=== PATIENT | female | born 1965 | race Caucasian/White ===

== ENCOUNTER 2018-04-04 18:54 | Emergency (ER) | payer BC ==
[~2018-04-04] VITALS: Ht 165.1 cm; Wt 82.6 kg
[2018-04-04 19:00] VITALS: BP 185/109
--- NOTE | 2018-04-04 19:00 | NUR ---
PATIENT AMBULATED TO ER BED 6.
--- NOTE | 2018-04-04 19:05 | NUR ---
PATIENT PRESENTS TO ED WITH C/O DIZZINESS STARTED TODAY. REPORTS TINGLING ON L SIDE OF BODY TODAY, BODY ACHES, BACKACHES. PT DENIES N/V/D; SKIN IS PINK/WARM/DRY; AAOX4 WITH EVEN AND STEADY GAIT; LUNGS CLEAR BL; HR EVEN AND REGULAR; PT DENIES ANY FEVER, CP, SOB, OR COUGH AT THIS TIME; PATIENT STATES PAIN OF 8/10 AT THIS TIME; VSS; PATIENT POSITIONED FOR COMFORT; HOB ELEVATED; BEDRAILS UP X2; BED DOWN. ER MD MADE AWARE OF PT STATUS.
[2018-04-04 19:35] LABS: BASOPHILS # (AUTO) 0.1 K/uL (0.00-0.22); BASOPHILS % (AUTO) 0.7 % (0.0-2.0); EOSINOPHILS # (AUTO) 0.2 K/uL (0-0.4); EOSINOPHILS % (AUTO) 2.1 % (0.0-4.0); HEMATOCRIT 46.9 % (36-48); HEMOGLOBIN 15.3 g/dL (12.0-16.0); LYMPHOCYTES # (AUTO) 4.1 K/uL (2.5-16.5); LYMPHOCYTES % (AUTO) 38.8 % (20.5-51.1); MEAN CORPUSCULAR HEMOGLOBIN 29 pg (27-31); MEAN CORPUSCULAR HGB CONC 33 g/dL (33-37); MONOCYTES # (AUTO) 0.8 K/uL (0.8-1.0); MONOCYTES % (AUTO) 7.6 % (1.7-9.3); NEUTROPHILS # (AUTO) 5.4 K/uL (1.8-7.7); NEUTROPHILS % (AUTO) 50.8 % (42.2-75.2); PLATELET COUNT (AUTO) 364 K/uL (140-450); RED BLOOD CELL COUNT(AUTO) 5.33 MIL/uL (4.20-5.40); RED CELL DISTRIBUTION WIDTH 14.3 % (11.6-13.7); WHITE BLOOD COUNT (AUTO) 10.7 K/uL (4.8-10.8)
[2018-04-04] MEDS ORDERED: cloNIDine 0.1 MG TAB PO ONE (19:40)
[2018-04-04 19:44] LABS: ANION GAP 13.7 (8-16); CARBON DIOXIDE 28.1 mmol/L (21-32); CREATININE 0.9 mg/dL (0.6-1.3); POTASSIUM 3.8 mmol/L (3.5-5.1)
[2018-04-04 19:45] LABS: APPEARANCE,URINE CLEAR (CLEAR); COLOR,URINE YELLOW (YELLOW); PH,URINE 6.5 (5.0-9.0)
[2018-04-04 19:46] LABS: BILIRUBIN,URINE NEGATIVE (NEGATIVE); BLOOD, URINE TRACE (NEGATIVE); LEUKOCYTE ESTERASE ,URINE NEGATIVE (NEGATIVE); NITRITE, URINE NEGATIVE (NEGATIVE); RBC,URINE 3-10 (FEW) /HPF (0-5); UGLUCOSE NEGATIVE (NEGATIVE); WBC,URINE 0-5 (RARE) /HPF (0-5)
[2018-04-04 19:51] LABS: ALBUMIN 4.4 g/dL (3.4-5.0); TOTAL BILIRUBIN 0.2 mg/dL (0.0-1.0)
--- NOTE | 2018-04-04 20:29 | NUR ---
Patient returned from CT scan. RN re-evaluating patient at bedside.
[2018-04-04] MEDS ORDERED: methylPREDNISolone SS 125 MG/2 ML VIAL IVP ONE (23:55)
[2018-04-04] MEDS ORDERED: MORPHINE SULFATE 4 MG/ML SYR IVP ONE (23:55)
[2018-04-05] MEDS ORDERED: traMADol 50 MG TAB PO ONE
[2018-04-05] MEDS ORDERED: methylPREDNISolone SS 125 MG/2 ML VIAL ONE (00:09)
[2018-04-05] MEDS ORDERED: traMADol 50 MG TAB ONE (00:11)
[2018-04-05 02:22] VITALS: BP 147/92
== END 2018-04-05 00:45 | disposition home or self-care (01) ==
LOC: MED 18:54
DX: I16.0 Hypertensive urgency (principal); L93.0 Discoid lupus erythematosus; N39.0 Urinary tract infection, site not specified
CPT/HCPCS: 36415; 70450; 71045; 72100; 80053; 81001; 81025; 84484; 85025; 93005; 96372; 99285; J2930; Q0092

== ENCOUNTER 2018-08-27 22:10 | Emergency (ER) | payer BC ==
[~2018-08-27] VITALS: Ht 165.1 cm; Wt 81.6 kg
[2018-08-27 22:17] VITALS: BP 176/100
--- NOTE | 2018-08-27 22:20 | NUR ---
PT AMBULATED TO BED 10.
--- NOTE | 2018-08-27 22:20 | NUR ---
PT PRESTNS TO ED WITH RIGHT BREAST PAIN. STATES BIOPSY DONE X7 WEEKS AGO. 6/10 CONSTANT PAIN. NO DRAINAGE, REDNESS AND EDEMA TO AREA. ALSO C/O SWELLING UNDER RIGHT AXILLARY. PCP DX'D MASTITIS. PT CANNOT GET A TIMLY APPOINTMENT WITH PCP TO SEE A SPECIALY. PT CONCERNED AND REQUESTING PHYSICIAN EVALUATION. ER MD AWARE. A&OX4. CONTINUE TO MONITOR.
--- NOTE | 2018-08-27 22:40 | NUR ---
Female Instructor Psychiatric Aide accompanied DR CARLISLE FOR BREAST EXAM.
[2018-08-27 22:48] LABS: BASOPHILS # (AUTO) 0.1 K/uL (0.00-0.22); BASOPHILS % (AUTO) 0.6 % (0.0-2.0); EOSINOPHILS # (AUTO) 0.3 K/uL (0-0.4); EOSINOPHILS % (AUTO) 2.8 % (0.0-4.0); HEMATOCRIT 40.1 % (36-48); LYMPHOCYTES # (AUTO) 3.6 K/uL (2.5-16.5); LYMPHOCYTES % (AUTO) 39.9 % (20.5-51.1); MEAN CORPUSCULAR HEMOGLOBIN 28 pg (27-31); MEAN CORPUSCULAR HGB CONC 33 g/dL (33-37); MEAN CORPUSCULAR VOLUME 84.9 fL (80-94); MONOCYTES # (AUTO) 0.7 K/uL (0.8-1.0); MONOCYTES % (AUTO) 8.3 % (1.7-9.3); NEUTROPHILS # (AUTO) 4.3 K/uL (1.8-7.7); NEUTROPHILS % (AUTO) 48.4 % (42.2-75.2); PLATELET COUNT (AUTO) 337 K/uL (140-450); RED BLOOD CELL COUNT(AUTO) 4.72 MIL/uL (4.20-5.40); RED CELL DISTRIBUTION WIDTH 15.9 % (11.6-13.7)
[2018-08-27 22:55] LABS: ANION GAP 12.5 (8-16); CARBON DIOXIDE 28.5 mmol/L (21-32); CREATININE 0.7 mg/dL (0.6-1.3)
[2018-08-27 23:00] LABS: ALBUMIN 3.8 g/dL (3.4-5.0); TOTAL BILIRUBIN 0.2 mg/dL (0.0-1.0)
--- NOTE | 2018-08-27 23:30 | NUR ---
PT IN BED RESTING WITH EYES CLOSED. VSS. CONTINUE TO MONITOR.
--- NOTE | 2018-08-28 00:20 | NUR ---
Patient discharged with v/s stable. Written and verbal after care instructions given and explained. Patient alert, oriented and verbalized understanding of instructions. Ambulatory with steady gait. All questions addressed prior to discharge. ID band removed. Patient advised to follow up with PMD. Rx of FLEXERIL given. Patient educated on indication of medication including possible reaction and side effects. Opportunity to ask questions provided and answered.
[2018-08-28 00:37] VITALS: BP 156/93
== END 2018-08-28 00:20 | disposition home or self-care (01) ==
LOC: MED 22:10
DX: N64.4 Mastodynia (principal); I10 Essential (primary) hypertension
CPT/HCPCS: 36415; 76641; 80053; 85025; 99284; Q0092